=== PATIENT | female | born 1960 | race Hispanic/Latino ===

== ENCOUNTER 2018-07-22 13:51 | Outpatient (CLI) | payer MEDICAID | END 2018-07-22 13:52 | disposition home or self-care (01) | LOC: C.USIC 13:51 | DX: R31.9 Hematuria, unspecified (principal) ==

== ENCOUNTER 2018-10-09 12:27 | Emergency (ER) | payer MEDICAID ==
[2018-10-09 12:45] VITALS: BMI 26.5
[2018-10-09] MEDS ORDERED: Lidocaine 1% Inj (20ml) INFIL STA ×2 (12:53)
[2018-10-09] MEDS ORDERED: Lidocaine Hydrochloride 5 ML INJ ONE (13:09)
--- NOTE | 2018-10-09 13:31 | RAD ---
PROCEDURE: Left Hand Radiographs. HISTORY: left hand pain after fx COMPARISON: None. TECHNIQUE: 3 views obtained. FINDINGS: BONES: There is comminuted transverse fracture of the distal radius with severe dorsal angulation of the distal radial fragment and overriding. There is a markedly displaced ulnar styloid process fracture. JOINTS: Osteoarthritis of DIP 2 and 3. Remaining interphalangeal, MCP and CMC joints are preserved. SOFT TISSUES: Normal. OTHER FINDINGS: None. IMPRESSION: Comminuted angulated transverse distal radial fracture with overriding. Displaced ulnar styloid process fracture. Osteoarthritis of DIP 2 and 3.
--- NOTE | 2018-10-09 13:33 | RAD ---
Date of service: 10/09/2018 PROCEDURE: Left Wrist Radiographs. HISTORY: left wrist deformity COMPARISON: None. TECHNIQUE: 4 views obtained. FINDINGS: BONES: Comminuted transverse distal radial fracture with marked dorsal angulation of the distal fragment and overriding of the fracture fragments. Displaced ulnar styloid process fracture. The radiocarpal articulation appears grossly intact. The distal radioulnar articulation appears disrupted. There is an abnormal relationship of the distal ulna to the carpal bones, with the distal aspect of the ulna ventral and proximal to its normal position. JOINTS: Normal. No dislocation. SOFT TISSUES: Normal. OTHER FINDINGS: None. IMPRESSION: Transverse angulated overriding distal radial fragment with displaced ulnar styloid process fracture.
--- NOTE | 2018-10-09 14:04 | C.PDOC ---
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 She denies any injury or LOC. <Medina Freedman - Last Filed: 10/13/18 12:38> <Josh Taylor - Last Filed: 10/09/18 14:20> History Per: Patient History/Exam Limitations: no limitations Onset/Duration Of Symptoms: Hrs Current Symptoms Are (Timing): Still Present Quality: "Pain", Other (swelling) Recent travel outside of the [place]: No Additional History Per: Patient <Medina Freedman - Last Filed: 10/13/18 12:38> Time Seen by Provider: 10/09/18 12:52 Chief Complaint (Nursing): Upper Extremity Problem/Injury Past Medical History Vital Signs: Last Vital Signs Temp 98.1 F 10/09/18 12:40 Pulse 75 10/09/18 12:40 Resp 16 10/09/18 12:40 BP 105/54 L 10/09/18 12:40 Pulse Ox 99 10/09/18 12:40 - Medical History PMH: Anxiety, Arthritis (Hands, Knees, and Feet), Asthma, Depression, Gastritis, Hypercholesterolemia Surgical History: Tonsillectomy - [facility] Procedures COLONOSCOPY (12/30/13) ESOPHAGOGASTRODUODENOSCOPY [EGD] W/CLOSED BIOPSY (12/30/13) PHARYNGEAL BIOPSY (01/11/14) - Social History Hx Alcohol Use: No Hx Substance Use: No <Josh Taylor - Last Filed: 10/09/18 14:20> Reviewed: Historical Data, Nursing Documentation, Vital Signs Vital Signs: Last Vital Signs Temp 98.1 F 10/09/18 12:40 Pulse 75 10/09/18 12:40 Resp 16 10/09/18 12:40 BP 105/54 L 10/09/18 12:40 Pulse Ox 99 10/09/18 14:22 - [facility] Procedures COLONOSCOPY (12/30/13) ESOPHAGOGASTRODUODENOSCOPY [EGD] W/CLOSED BIOPSY (12/30/13) PHARYNGEAL BIOPSY (01/11/14) Family History: States: No Known Family Hx <Jasmina,Medina Sourav - Last Filed: 10/13/18 12:38> Review Of Systems Constitutional: Negative for: Other (head injury) Musculoskeletal: Positive for: Hand Pain (left wrist pain and swelling) Neurological: Negative for: Other (LOC) <Medina Freedman - Last Filed: 10/13/18 12:38> Physical Exam - Physical Exam Appears: Non-toxic, No Acute Distress Skin: Warm, Dry Head: Atraumatic, Normacephalic Chest: Symmetrical, No Deformity Cardiovascular: Rhythm Regular, No Murmur Respiratory: Normal Breath Sounds, No Rales, No Rhonchi, No Wheezing Extremity: No Normal ROM (limited in left wrist), No Tenderness (elbow and shoulder), Capillary Refill (less than 2 seconds), Deformity (left wrist dinner fork deformity ) Pulses: Left Radial: Normal Neurological/Psych: Oriented x3, Normal Sensation (left wrist) <Medina Freedman - Last Filed: 10/13/18 12:38> ED Course And Treatment O2 Sat by Pulse Oximetry: 99 <Josh Taylor - Last Filed: 10/09/18 14:20> - Laboratory Results Result Diagrams: 10/09/18 14:23 10/09/18 14:23 Lab Results: PT 10.5 SECONDS (9.7-12.2) 10/09/18 14:23 INR 1.0 10/09/18 14:23 APTT 27.0 SECONDS (21-34) 10/09/18 14:23 Total Bilirubin 0.2 mg/dL (0.2-1.3) 10/09/18 14:23 AST 29 U/L (14-36) 10/09/18 14:23 ALT 11 U/L (9-52) 10/09/18 14:23 Alkaline Phosphatase 44 U/L (38-126) 10/09/18 14:23 Total Protein 7.2 g/dL (6.3-8.3) 10/09/18 14:23 Albumin 4.2 g/dL (3.5-5.0) 10/09/18 14:23 Globulin 3.0 gm/dL (2.2-3.9) 10/09/18 14:23 Albumin/Globulin Ratio 1.4 (1.0-2.1) 10/09/18 14:23 Pulse Ox Interpretation: Normal - Other Rad Xray Lft Hand X-Ray: Viewed By Me, Read By Radiologist Interpretation: PROCEDURE: Left Hand Radiographs. HISTORY: left hand pain after fx. COMPARISON: None. TECHNIQUE: 3 views obtained. FINDINGS: BONES: There is comminuted transverse fracture of the distal radius with severe dorsal angulation of the distal radial fragment and overriding. There is a markedly displaced ulnar styloid process fracture. JOINTS: Osteoarthritis of DIP 2 and 3. Remaining interphalangeal, MCP and CMC joints are preserved. SOFT TISSUES: Normal. OTHER FINDINGS: None. IMPRESSION: Comminuted angulated transverse distal radial fracture with overriding. Displaced ulnar styloid process fracture. Osteoarthritis of DIP 2 and 3. Xray Lft Wrist X-Ray: Viewed By Me, Read By Radiologist Interpretation: Date of service: 10/09/2018. PROCEDURE: Left Wrist Radiographs. . HISTORY: left wrist deformity. COMPARISON: None. TECHNIQUE: 4 views obtained. FINDINGS: BONES: Comminuted transverse distal radial fracture with marked dorsal angulation of the distal fragment and overriding of the fracture fragments. Displaced ulnar styloid process fracture. The radiocarpal articulation appears grossly intact. The distal radioulnar articulation appears disrupted. There is an abnormal relationship of the distal ulna to the carpal bones, with the distal aspect of the ulna ventral and proximal to its normal position. JOINTS: Normal. No dislocation. SOFT TISSUES: Normal. OTHER FINDINGS: None. IMPRESSION: Transverse angulated overriding distal radial fragment with displaced ulnar styloid process fracture. Progress Note: Plan: Labs. Xray Lft Hand. Xray Lft Wrist. Tylenol 650mg PO. IV Fluids. Diprivan 100mg IV. Lidocaine 20ml INFIL. Nitrous Oxide. Diagnosis: left distal radius fracture. 2 attempts at reduction. First attempt hematoma block 5ml of Lidocaine 1% into area of hematoma. Using finger straps and weights attempted to reduce, but kathryn was still having pain. Second attempt with nitrous oxide,but was unable to reduce. Discussed with ortho who advised to just splint the arm. Arm was splinted by this doctor with sugar tongs and patient was given a sling and advised to follow up with Dr. Wood in 4 days. - Physician Consult Information Physician Contacted: Horacio Wood III Outcome Of Conversation: Discussed patient with orthopedics career technical education teacher. He has seen the Xrays, no need for emergent reduction at this time, recommends splinting and will see her in the office on friday. <JasminaMedina - Last Filed: 10/13/18 12:38> Orthopedic Time Performed: 13:30 Time Out: Side verified, Site verified, Patient ID confirmed Procedure: Fracture reduction Location: Right Consent obtained: Verbal Performed by: Attending Physician Diagnosis: Fracture Type: Closed, Displaced Location: Distal Bone: Radius Anesthetic Technique: Local (HEMATOMA BLOCK (APPROX 4ML)) Other:: AFTER INITIAL REDUCTION ATTEPT WITH HEMATOMA BLOCK, ALSO USED NITROUS OXIDE - UNSUCCESSFUL Capillary refill: Normal Distal Sensation: Normal Distal Motor Function: Normal Capillary Refill: Normal Compartment: Normal Distal Sensation: Normal Distal Motor Function: Normal Patient tolerated procedure: With difficulty (patient unable to tolerate, also unable to align/reduce well) <Jasmina,Medina Sourav - Last Filed: 10/13/18 12:38> Disposition <Josh Taylor - Last Filed: 10/09/18 14:20> Counseled Patient/Family Regarding: Studies Performed, Diagnosis, Need For Followup, Rx Given - Disposition Disposition Time: 15:15 - POA Present On Arrival: Falls Or Trauma <Jasmina,Medina Sourav - Last Filed: 10/13/18 12:38> - Disposition Referrals: Lazaro Levin MD [Staff Provider] - Horacio Wood III, MD [Staff Provider] - Disposition: HOME/ ROUTINE Condition: STABLE Additional Instructions: FOLLOW UP WITH DR WOOD IN HIS OFFICE FRIDAY USE PAIN MEDICATION NEEDED KEEP HAND/WRIST ELEVATED MUCH POSSIBLE RETURN TO ER IF SYMPTOMS WORSEN Prescriptions: Hydrocodone/Acetaminophen [Hydrocodone-Acetamin 5-325 mg] 1 each PO Q6 PRN #15 tablet PRN Reason: PAIN Ibuprofen [Motrin Tab] 600 mg PO Q6 PRN #30 tab PRN Reason: fever/pain Instructions: Radius Fracture (DC) Forms: [employer] (Tuvaluan) Print Language: CHILEAN - Clinical Impression Clinical Impression: Distal radius fracture, left, Fracture of ulnar styloid - PA / FEDERAL AGENT / Resident Statement MD/DO has examined the patient and agrees with the treatment plan. - Scribe Statement The provider has reviewed the documentation as recorded by the Olvin Landis All medical record entries made by the Scribpatt were at my direction and personally dictated by me. I have reviewed the chart and agree that the record accurately reflects my personal performance of the history, physical exam, medical decision making, and the department course for this patient. I have also personally directed, reviewed, and agree with the discharge instructions and disposition. <Medina Freedman - Last Filed: 10/13/18 12:38>
[2018-10-09] MEDS ORDERED: Sodium Chloride 0.9% 1,000 ML IV ONE (14:21)
[2018-10-09] MEDS ORDERED: Propofol 10 mg/ml Inj (100 ml) IV STA (14:22)
[2018-10-09 14:31] LABS: BASO # 0.1 K/uL (0.0-0.2); BASO % 0.7 % (0.0-2.0); EOS # 0.2 K/uL (0.0-0.7); EOS % 1.5 % (0.0-4.0); HEMOGLOBIN 11.2 g/dL (11.0-16.0); LYMPH # 1.9 K/uL (1.0-4.3); LYMPH % 13.7 % (20.0-40.0); MEAN CELL VOLUME 87.8 fL (81.0-99.0); MEAN CORPUSCULAR HEMOGLOBIN 29.5 pg (27.0-31.0); MEAN CORPUSCULAR HGB CONC 33.6 g/dL (33.0-37.0); MEAN PLATELET VOLUME 8.4 fL (7.2-11.7); MONO # 0.8 K/uL (0.0-0.8); MONO % 5.7 % (0.0-10.0); NEUT # 11.1 K/uL (1.8-7.0); NEUT % 78.4 % (50.0-75.0); RBC 3.81 Mil/uL (3.80-5.20); RED CELL DISTRIBUTION WIDTH 13.6 % (11.5-14.5); WHITE BLOOD COUNT 14.2 K/uL (4.8-10.8)
[2018-10-09 14:48] LABS: ALB/GLOB RATIO 1.4 (1.0-2.1); ALBUMIN 4.2 g/dL (3.5-5.0); ALT/SGPT 11 U/L (9-52); AST/SGOT 29 U/L (14-36); BLOOD UREA NITROGEN 20 mg/dL (7-17); CALCIUM 9.5 mg/dl (8.6-10.4); GFR NON-AFRICAN AMERICAN > 60
[2018-10-09 15:01] LABS: PROTHROMBIN TIME 10.5 SECONDS (9.7-12.2)
[2018-10-09 15:43] VITALS: BP 133/88; PULSE 72; RESP 18; TEMP 98.9; O2SAT 100
== END 2018-10-09 15:43 | disposition home or self-care (01) ==
LOC: C.ER 12:27
DX: S52.592A Other fractures of lower end of left radius, initial encounter for closed fracture (principal); S52.612A Displaced fracture of left ulna styloid process, initial encounter for closed fracture; W01.0XXA Fall on same level from slipping, tripping and stumbling without subsequent striking against object, initial encounter